=== PATIENT | female | born 1980 | race Caucasian/White ===

== ENCOUNTER 2017-03-29 08:05 | Emergency (ER) | payer OTHER ==
--- NOTE | 2017-03-29 10:34 | DIAGNOSTIC IMAGING REPORT ---
PROCEDURE: CT ABDOMEN/PELVIS W/O CONTRAST INDICATION: Bilateral flank pain. TECHNIQUE: Noncontrast axial images were obtained of the entire abdomen and pelvis with sagittal and coronal reformations. COMPARISON: None. FINDINGS: ABDOMEN: 2 cm rounded left lower lobe peripheral opacity with an inflammatory appearance suggestive of round pneumonia versus nodule. No effusion. Normal heart size. No evidence of urinary calculi. No hydronephrosis. Calcified hepatic granuloma. The gallbladder, pancreas, spleen and adrenal glands are normal. Normal abdominal aorta. Nonspecific bowel gas pattern. 1 cm fat filled umbilical hernia. PELVIS: Normal appendix. Uterus, adnexa and bladder are unremarkable. No pelvic mass, inflammatory changes or free fluid. Congenital T11 butterfly vertebrae. IMPRESSION: 1. 2 cm peripheral left lower lobe opacity, round pneumonia versus nodule 2. No evidence of urinary calculi or hydronephrosis 3. Congenital T11 butterfly vertebrae. 4. Results discussed with Dr. Heaton All CT scans at this facility use dose modulation, iterative reconstruction, and/or weight-based dosing when appropriate to reduce radiation dose to as low as reasonably achievable.
--- NOTE | 2017-03-29 10:42 | ED NURSING NOTES ---
Clinical Report - Nurses [facility] [address] [place] [address] 03/29/2017 8:10 [id number] Triage time 08:25. Acuity: LEVEL 3. Chief Complaint: BACK PAIN (left sided rib pain no trauma might have sat wrong). Alert. --08:31 Jeanna Wellington R.N. 08:25 03/29/17. BP: 137/110. HR: 114. RR: 22. O2 saturation: 98%. Temp: 98.3 F. Pain level now 06/08. --08:31 Jeanna Wellington R.N. Weight: 86.1 kg stated. Height/Length: 63 inches Per Patient. BMI: 33.6. --08:30 Jeanna Wellington R.N. Medications None. --08:29 Jeanna Wellington R.N. Allergies None. --08:29 Jeanna Wellington R.N. History Arrived by private vehicle. Historian: patient. Accompanied by family. Primary physician (none). This is a new problem and onset was abrupt. (about 2 days). ( t has had a cold and now has rib pain). 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 PAST MEDICAL HX: Immunizations: up-to-date. Last normal menstrual period- March 25. SOCIAL HX: Former smoker. No alcohol use or drug use. --08:31 Jeanna Wellington R.N. PROBLEMS: Spontaneous (Miscarriage). --08:29 Jeanna Wellington R.N. ADDITIONAL SURGERIES: Dilatation & Curettage. --08:29 Jeanna Wellington R.N. PHYSICAL ASSESSMENT Ambulatory to room. Patient gowned. GENERAL / NEURO / PSYCH: Alert. Oriented X 4. Appears anxious and in distress. --08:31 Jeanna Wellington R.N. NURSING PROGRESS NOTES Patient gowned. Call light placed in reach. Side rails up x 1. Patient ready for evaluation- ED physician notified. --08:31 Jeanna Wellington R.N. 09:13 03/29/2017 Site #1 started via IV in the left hand with an 18g angiocath, with aseptic technique and good blood return; one attempt. Blood drawn: rainbow set. Labeled in the presence of the patient and sent to the lab. --09:13 Jeanna Wellington R.N. 09:13 03/29/2017 Started bag #1 1000 mL IV Fluids IV NS (Saline); bolus of 500 mL over 30 minute(s) then at 125 mL/hr over 4 hour(s) via site #1 via IV pump. Allergies verified and confirmed 5 rights. IV patency established. IV site checked: no pain, redness, or swelling. IV flushed thoroughly pre- and post-medication administration. --09:13 Jeanna Wellington R.N. 09:23 03/29/2017 Toradol IVP 30 mg given over 2 minute(s) via site #1. Allergies verified and confirmed 5 rights. IV patency established. IV site checked: no pain, redness, or swelling. IV flushed thoroughly pre- and post-medication administration. IVP given by RN. --09:28 Jeanna Wellington R.N. 09:38 03/29/2017 Zofran (Ondansetron HCl) IVP 4 mg given over 2 minute(s) via site #1. Allergies verified and confirmed 5 rights. IV patency established. IV site checked: no pain, redness, or swelling. IV flushed thoroughly pre- and post-medication administration. IVP given by RN. --09:43 Jeanna Wellington R.N. 09:38 03/29/2017 Dilaudid (HYDROmorphone HCl PF) IVP 1 mg given over 2 minute(s) via site #1. Allergies verified, confirmed 5 rights and sedative warning given to the patient. IV patency established. IV site checked: no pain, redness, or swelling. IV flushed thoroughly pre- and post-medication administration. IVP given by RN. --09:43 Jeanna Wellington R.N. 10:39 03/29/2017 Started 2 gm of Rocephin (CefTRIAXone Sodium) IVPB in bag #1 50 mL; at 100 mL/hr over 30 minute(s) via site #1 via IV pump. Allergies verified and confirmed 5 rights. IV patency established. IV site checked: no pain, redness, or swelling. IV flushed thoroughly pre- and post-medication administration. --10:39 Jeanna Wellington R.N. 10:39 03/29/2017 Zithromax PO 500 mg given. Allergies verified and confirmed 5 rights. --10:39 Jeanna Wellington R.N. The patient is calm and resting quietly. Overall patient status is improved. RESPIRATORY: No respiratory distress. --10:40 Jeanna Wellington R.N. 10:39 03/29/17. Pain level now 01/06. --10:40 Jeanna Wellington R.N. 11:06 03/29/2017 Site #1 removed upon discharge. Bandaid applied. --11:16 Jeanna Wellington R.N. DISPOSITION / DISCHARGE Condition at departure: improved and stable. Discharge instructions provided and reviewed with the patient. Patient verbalized understanding. Written instructions provided in Yakut. The patient was discharged home and accompanied by mexican food maker hand. She left the Emergency Department ambulatory and via private vehicle. Skip [employer] driving. --11:16 Jeanna Wellington R.N. 11:15 03/29/17. BP: 117/66. HR: 67. RR: 18. O2 saturation: 97%. Pain level now 12/09. --11:16 Jeanna Wellington R.N. Departure time: 11:17. --11:17 Jeanna Wellington R.N. Locked/Released at 03/29/2017 11:21 by Jeanna Wellington R.N.
--- NOTE | 2017-03-29 10:42 | ED CLINICAL REPORT ---
Clinical Report - Physicians/Mid Levels [facility] [address] [place] [place] [address] 03/29/2017 8:10 Patient: RAYMOND GROVE Time Seen: 925. Arrived- By private vehicle. Historian- patient. HISTORY OF PRESENT ILLNESS Chief Complaint: BACK PAIN. It is described as being severe and in the area of the right flank and right side of the upper lumbar spine. The quality is noted to be "pain". No radiation. Modifying factors- worsened by sitting. Relieved by standing. (Patient states lifting her right leg makes the pain worse. The pain is on the right.). Onset- about 2 days ago and it is still present. No bladder dysfunction, bowel dysfunction, sensory loss or motor loss. Patient notes the possibility of an injury. Mechanism of injury- (patient states she had been watching a movie with her boyfriend and felt the pain after standing up from the couch. She did not feel any specific injury otherwise. No pop or snap. The patient has no history of chronic back pain. Patient does note that she had recently been ill with a flu-like illness; however the symptoms of this have resolved.). No other injury. Similar symptoms previously: None. Recent medical care: Not recently seen/assessed. REVIEW OF SYSTEMS No fever, chills, eye discomfort, headache or sore throat. No cough, difficulty breathing, skin rash, abdominal pain or nausea. No vomiting, diarrhea, black stools, difficulty with urination or urinary frequency. No hematuria or bloody stools. The patient has had chest pain (patient has pain over her left lateral rib cage). All systems otherwise negative, except as recorded above. PAST HISTORY Problems: Spontaneous (Miscarriage). Additional Surgeries: Dilatation & Curettage. Medications: None. Allergies: None. SOCIAL HISTORY Former smoker. No alcohol use or drug use. ADDITIONAL NOTES The nursing notes have been reviewed. PHYSICAL EXAM Vital Signs: 03/29/2017 08:25 BP: 137/110. HR: 114. RR: 22. O2 saturation: 98%. Temp: 98.3 F. Have been reviewed. Appearance: Alert. (Patient is tearful.). HEENT: Normal external inspection. Eyes: Pupils equal, round and reactive to light. Neck: Normal inspection. Painless ROM. CVS: Normal heart rate and rhythm. Heart sounds normal. Pulses normal. Respiratory: No respiratory distress. Breath sounds normal. (Patient has mild tenderness over her inferior left lateral rib cage.). Abdomen: Normal inspection. Soft and nontender. Back: Mild CVA tenderness on the right. Mildly limited ROM in the back- in the lumbar spine: decreased flexion, left lateral bending and rotation to the right and left. Skin: Skin warm and dry. Normal skin color. No rash. Normal skin turgor. Extremities: No lower extremity edema. Extremities nontender. No calf tenderness. Neuro: Oriented X 3. Mood/affect normal. No motor deficit. No sensory deficit. LABS, X-RAYS, AND EKG CT Abdomen - Pelvis: Normal aorta. Normal liver, spleen, pancreas, gallbladder and adrenals. Normal kidneys. Bladder normal. Appendix normal. No free fluid. No bony lesion. No diverticulitis. Left lower lobe pneumonia. Study type: renal stone evaluation; upper abdomen; lower abdomen; pelvis. Abdomen - pelvic CT performed without contrast. The study was independently viewed by me, interpreted by the radiologist and contemporaneously by me and discussed with the radiologist. Prior studies were not available for comparison. Laboratory Tests: UA-Culture if indicated: (MARTHA: 03/29/2017 08:55) ( MsgRcvd 03/29/2017 09:46) Final results Test Result Flag Units (Reference) URINE COLOR YELLOW URINE APPEARANCE SL CLOUDY URINE GLUCOSE NEGATIVE (NEGATIVE) URINE BILIRUBIN ICTOTEST NEGATIVE (NEGATIVE) URINE KETONE 3+ (NEGATIVE) URINE SPECIFIC GRAVITY 1.015 (1.010-1.030) URINE PH 6.0 (5.0-8.0) URINE PROTEIN 1+ (NEGATIVE) URINE UROBILINOGEN 1.0 EU/dL (0.2-1.0) URINE NITRITE NEGATIVE (NEGATIVE) URINE BLOOD 3+ (NEGATIVE) URINE LEUK ESTERASE NEGATIVE (NEGATIVE) URINE RBC 3-5 rbc/hpf (0-1) URINE WBC 3-5 wbc/hpf (0-1) URINE EPITHELIAL CELLS 5-10 EPI/hpf (0-5) URINE BACTERIA MODERATE (2+ TO 3+) (NONE SEEN) URINE COMMENT CULTURE INDICATED URINE CULTURES ARE SET-UP BASED ON THE FOLLOWING CRITERIA:POSITIVE NITRITEPOSITIVE LEUKOCYTE ESTERASEGREATER THAN 10 WHITE BLOOD CELLSMODERATE (2+) OR GREATER BACTERIA Urine: (MARTHA: 03/29/2017 08:55) ( [facility] [place] 03/29/2017 09:24) Final results Test Result Flag Units (Reference) URINE NEGATIVE CBC w Diff: (MARTHA: 03/29/2017 09:05) ( [facility] [place] 03/29/2017 09:24) Final results Test Result Flag Units (Reference) WHITE BLOOD COUNT 8.8 K/uL (4.5-11.5) RED BLOOD COUNT 4.68 M/uL (4.00-5.20) HEMOGLOBIN 14.2 gm/dL (12.0-16.0) HEMATOCRIT 41.8 % (36.0-46.0) MEAN CELL VOLUME 89 fL (80-100) MEAN CORPUSCULAR HGB 30 pg (26-34) MEAN CORPUSCULAR HGB CONC 34 g/dL (31-37) RED CELL DISTRIBUTION WIDTH 12.9 % (11.6-14.8) PLATELET COUNT 254 K/uL (150-400) NEUTROPHIL % 77.5 H % (50-75) LYMPH % 12.3 L % (25-40) MONO % 9.6 % (3-14) EOSINOPHIL % 0.6 % (0-4) BASOPHIL % 0 % (0-2) CMP: (MARTHA: 03/29/2017 09:05) ( [facility] [place] 03/29/2017 09:44) Final results Test Result Flag Units (Reference) GLUCOSE 120 H mg/dL (70-110) BUN 6 L mg/dL (7-18) CREATININE 0.8 mg/dL (0.6-1.3) Estimated GFR >60 mL/min Estimated GFR- >60 mL/min Note: Persistent reduction over 3 months in eGFR<60 mL/min/1.73 m2 defines CKD. Patients with eGFR values>=60 mL/min/1.73 m2 may also have CKD if evidence ofpersistent proteinuria. Additional information may be foundat www.[email or web address].org. SODIUM 139 mmol/L (136-145) POTASSIUM 4.1 mmol/L (3.5-5.1) CHLORIDE 102 mmol/L (98-107) CARBON DIOXIDE 20 L mmol/L (21-32) CALCIUM 9.0 mg/dL (8.5-10.1) TOTAL PROTEIN 8.1 g/dL (6.4-8.2) ALBUMIN 3.8 g/dL (3.3-5.0) BILIRUBIN, TOTAL 0.6 mg/dL (0.0-1.0) ALKALINE PHOSPHATASE 123 H U/L (46-116) AST (SGOT) 83 H U/L (15-37) ALT (SGPT) 269 H U/L (12-78) LIPASE 94 U/L (73-393) AMYLASE 40 U/L (25-115) . Pulse Oximetry: 03/29/2017 08:25 O2 saturation: 98%. (FIO2 - room air). Interpretation: normal. PROGRESS AND PROCEDURES Course of Care: Patient was given IV fluids Toradol, Dilaudid and Zofran for symptomatic relief. Patient's pain did sound likely to be muscular; however given the degree of pain and the location, I did feel that the patient should be worked up for a kidney stone as well. CT scan did show a left lower lobe pneumonia, but otherwise no pathology. Patient was treated with antibiotics for this. No emergent condition was identified. Patient counseled in person regarding the patient's stable condition, test results, diagnosis and need for follow-up. Concerns were addressed. Old medical records reviewed. Disposition: Discharged. Condition: stable and improved. CLINICAL IMPRESSION Bacterial pneumonia. Vital signs recorded and reviewed; empiric antibiotics given in the ED. No hypoxemia, respiratory failure or sepsis. Muscle strain of the low back. INSTRUCTIONS (Your CT scan showed a small area of pneumonia in the left lower lung. You should have a chest x-ray in 2 weeks to make sure this has resolved with antibiotics, and that there is not an underlying tumor there. No abnormalities were found on the right side. You do not have a kidney stone or any other organ problems.). Warnings: SEDATIVE MEDICATION: You were given sedative medication during your visit. Do not drive or operate dangerous machinery for 6 hours. GENERAL WARNINGS: Return or contact your physician immediately if your condition worsens or changes unexpectedly, if not improving as expected, or if other problems arise. Prescription Medications: Hydrocodone/APAP 5mg / 325mg: take 1-2 orally every 6 hours as needed for pain. Dispense fifteen (15). No refill. Zofran (orally disintegrating tablets) 4 mg: take 1-2 orally every 6 hours as needed for nausea. Dispense fifteen (15). No refill. Substitution is permissible. Zithromax Z-John: Take according to package instructions 2 orally today, followed by 1 orally every day for the next 4 days. Total course 5 days. No refills. Substitution is permissible. Follow-up: Follow up with your doctor in five days if not better. Understanding of the discharge instructions verbalized by patient. (Electronically signed by Maria Del Rosario Heaton MD 04/06/2017 4:12)
--- NOTE | 2017-03-29 10:42 | ED ORDER SUMMARY ---
..... Patient: RAYMOND GROVE OrderSheet [facility] VisitID: [id number] [place], [place] [id number] 37y, F Registration Date/Time: 03/29/2017 ORDER SHEET Weight: 86.1 kg (stated) Allergies: None GENERAL ORDERS: CBC w Diff Urgent (09:00 03/29/2017 Axel ENCARNACION) (Ack 9:03 LNations ER Tech1) (9:12 DMaziarka R.N.) CMP Urgent (09:00 03/29/2017 Axel ENCARNACION) (Ack 9:03 LNations ER Tech1) (9:12 DMaziarka R.N.) UA-Culture if indicated Urgent (09:00 03/29/2017 Axel ENCARNACION) (Ack 9:03 LNations ER Tech1) (9:12 DMaziarka R.N.) Amylase Urgent (09:00 03/29/2017 Axel ENCARNACION) (Ack 9:03 LNations ER Tech1) (9:12 DMaziarka R.N.) Lipase Urgent (09:00 03/29/2017 Axel ENCARNACION) (Ack 9:03 LNations ER Tech1) (9:12 DMaziarka R.N.) Urine Urgent (09:00 03/29/2017 Axel ENCARNACION) (Ack 9:03 LNations ER Tech1) (9:12 DMaziarka R.N.) CT Abd/Pel wo Cont Urgent (09:39 03/29/2017 Brett ENCARNACION) (Ack 9:40 LNations ER Tech1) (10:07 LNations ER Tech1) MEDICATION ORDERS: Zithromax PO 500 mg (NOW) (10:28 03/29/2017 Brett ENCARNACION) (10:39 DMaziarka R.N.) IV FLUIDS: IV NS : initial bolus 500 mL (1000 mL/hr), then 125 mL/hr for 4h (NOW); Urgent (08:59 03/29/2017 Axel ENCARNACION) (9:13 DMaziarka R.N.) Toradol IV 30 mg (NOW) (09:21 03/29/2017 Néstorziarka R.N. verbal order read back to Brett ENCARNACION) (9:28 Heidy Church.N.) Zofran IV 4 mg (NOW) (09:38 03/29/2017 Brett ENCARNACION) (9:43 Heidy R.N.) Dilaudid IV 1 mg (HIGH ALERT MEDICATION, NOW) (09:38 03/29/2017 Brett ENCARNACION) (9:43 Heidy R.N.) Rocephin IV 2 gm/50mL (NOW) (10:28 03/29/2017 Brett ENCARNACION) (10:39 Heidy R.N.) ORDER SHEET NOTES: [Electronically signed by Jaenna Wellington R.N. (11:03/29/2017)] [Electronically signed by Maria Del Rosario Heaton MD (04:12 04/06/2017)] [Electronically locked/signed by Jeanna Wellington R.N. (11:21 03/29/2017)]
--- NOTE | 2017-03-29 10:42 | ED NURSING NOTES ---
Clinical Report - Nurses [facility] [address] [place] [address] 03/29/2017 8:10 [id number] Triage time 08:25. Acuity: LEVEL 3. Chief Complaint: BACK PAIN (left sided rib pain no trauma might have sat wrong). Alert. --08:31 Jeanna Wellington R.N. 08:25 03/29/17. BP: 137/110. HR: 114. RR: 22. O2 saturation: 98%. Temp: 98.3 F. Pain level now 06/08. --08:31 Jeanna Wellington R.N. Weight: 86.1 kg stated. Height/Length: 63 inches Per Patient. BMI: 33.6. --08:30 Jeanna Wellington R.N. Medications None. --08:29 Jeanna Wellington R.N. Allergies None. --08:29 Jeanna Wellington R.N. History Arrived by private vehicle. Historian: patient. Accompanied by family. Primary physician (none). This is a new problem and onset was abrupt. (about 2 days). ( t has had a cold and now has rib pain). 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 PAST MEDICAL HX: Immunizations: up-to-date. Last normal menstrual period- March 25. SOCIAL HX: Former smoker. No alcohol use or drug use. --08:31 Jeanna Wellington R.N. PROBLEMS: Spontaneous (Miscarriage). --08:29 Jeanna Wellington R.N. ADDITIONAL SURGERIES: Dilatation & Curettage. --08:29 Jeanna Wellington R.N. PHYSICAL ASSESSMENT Ambulatory to room. Patient gowned. GENERAL / NEURO / PSYCH: Alert. Oriented X 4. Appears anxious and in distress. --08:31 Jeanna Wellington R.N. NURSING PROGRESS NOTES Patient gowned. Call light placed in reach. Side rails up x 1. Patient ready for evaluation- ED physician notified. --08:31 Jeanna Wellington R.N. 09:13 03/29/2017 Site #1 started via IV in the left hand with an 18g angiocath, with aseptic technique and good blood return; one attempt. Blood drawn: rainbow set. Labeled in the presence of the patient and sent to the lab. --09:13 Jeanna Wellington R.N. 09:13 03/29/2017 Started bag #1 1000 mL IV Fluids IV NS (Saline); bolus of 500 mL over 30 minute(s) then at 125 mL/hr over 4 hour(s) via site #1 via IV pump. Allergies verified and confirmed 5 rights. IV patency established. IV site checked: no pain, redness, or swelling. IV flushed thoroughly pre- and post-medication administration. --09:13 Jeanna Wellington R.N. 09:23 03/29/2017 Toradol IVP 30 mg given over 2 minute(s) via site #1. Allergies verified and confirmed 5 rights. IV patency established. IV site checked: no pain, redness, or swelling. IV flushed thoroughly pre- and post-medication administration. IVP given by RN. --09:28 Jeanna Wellington R.N. 09:38 03/29/2017 Zofran (Ondansetron HCl) IVP 4 mg given over 2 minute(s) via site #1. Allergies verified and confirmed 5 rights. IV patency established. IV site checked: no pain, redness, or swelling. IV flushed thoroughly pre- and post-medication administration. IVP given by RN. --09:43 Jeanna Wellington R.N. 09:38 03/29/2017 Dilaudid (HYDROmorphone HCl PF) IVP 1 mg given over 2 minute(s) via site #1. Allergies verified, confirmed 5 rights and sedative warning given to the patient. IV patency established. IV site checked: no pain, redness, or swelling. IV flushed thoroughly pre- and post-medication administration. IVP given by RN. --09:43 Jeanna Wellington R.N. 10:39 03/29/2017 Started 2 gm of Rocephin (CefTRIAXone Sodium) IVPB in bag #1 50 mL; at 100 mL/hr over 30 minute(s) via site #1 via IV pump. Allergies verified and confirmed 5 rights. IV patency established. IV site checked: no pain, redness, or swelling. IV flushed thoroughly pre- and post-medication administration. --10:39 Jeanna Wellington R.N. 10:39 03/29/2017 Zithromax PO 500 mg given. Allergies verified and confirmed 5 rights. --10:39 Jeanna Wellington R.N. The patient is calm and resting quietly. Overall patient status is improved. RESPIRATORY: No respiratory distress. --10:40 Jeanna Wellington R.N. 10:39 03/29/17. Pain level now 01/06. --10:40 Jeanna Wellington R.N. 11:06 03/29/2017 Site #1 removed upon discharge. Bandaid applied. --11:16 Jeanna Wellington R.N. DISPOSITION / DISCHARGE Condition at departure: improved and stable. Discharge instructions provided and reviewed with the patient. Patient verbalized understanding. Written instructions provided in Bulgarian. The patient was discharged home and accompanied by medical equipment repairer. She left the Emergency Department ambulatory and via private vehicle. Cytology Laboratory Manager driving. --11:16 Jeanna Wellington R.N. 11:15 03/29/17. BP: 117/66. HR: 67. RR: 18. O2 saturation: 97%. Pain level now 12/09. --11:16 Jeanna Wellington R.N. Departure time: 11:17. --11:17 Jeanna Wellington R.N. Locked/Released at 03/29/2017 11:21 by Jeanna Wellington R.N.
--- NOTE | 2017-03-29 10:42 | ED ORDER SUMMARY ---
..... Patient: RAYMOND GROVE OrderSheet [facility] VisitID: [id number] [place]al [place], [place] [id number] 37y, F Registration Date/Time: 03/29/2017 ORDER SHEET Weight: 86.1 kg (stated) Allergies: None GENERAL ORDERS: CBC w Diff Urgent (09:00 03/29/2017 Axel ENCARNACION) (Ack 9:03 LNations ER Tech1) (9:12 DMaziarka R.N.) CMP Urgent (09:00 03/29/2017 Axel ENCARNACION) (Ack 9:03 LNations ER Tech1) (9:12 DMaziarka R.N.) UA-Culture if indicated Urgent (09:00 03/29/2017 Axel ENCARNACION) (Ack 9:03 LNations ER Tech1) (9:12 DMaziarka R.N.) Amylase Urgent (09:00 03/29/2017 Axel ENCARNACION) (Ack 9:03 LNations ER Tech1) (9:12 DMaziarka R.N.) Lipase Urgent (09:00 03/29/2017 Axel ENCARNACION) (Ack 9:03 LNations ER Tech1) (9:12 DMaziarka R.N.) Urine Urgent (09:00 03/29/2017 Axel ENCARNACION) (Ack 9:03 LNations ER Tech1) (9:12 DMaziarka R.N.) CT Abd/Pel wo Cont Urgent (09:39 03/29/2017 Brett ENCARNACION) (Ack 9:40 LNations ER Tech1) (10:07 LNations ER Tech1) MEDICATION ORDERS: Zithromax PO 500 mg (NOW) (10:28 03/29/2017 Brett ENCARNACION) (10:39 DMaziarka R.N.) IV FLUIDS: IV NS : initial bolus 500 mL (1000 mL/hr), then 125 mL/hr for 4h (NOW); Urgent (08:59 03/29/2017 Axel ENCARNACION) (9:13 DMaziarka R.N.) Toradol IV 30 mg (NOW) (09:21 03/29/2017 Néstorziarka R.N. verbal order read back to Brett ENCARNACION) (9:28 Heidy Church.N.) Zofran IV 4 mg (NOW) (09:38 03/29/2017 Brett ENCARNACION) (9:43 Heidy R.N.) Dilaudid IV 1 mg (HIGH ALERT MEDICATION, NOW) (09:38 03/29/2017 Brett ENCARNACION) (9:43 Heidy R.N.) Rocephin IV 2 gm/50mL (NOW) (10:28 03/29/2017 Brett ENCARNACION) (10:39 Heidy R.N.) ORDER SHEET NOTES: [Electronically signed by Jeanna Wellington R.N. (11:03/29/2017)] [Electronically signed by Maria Del Rosario Heaton MD (04:12 04/06/2017)] [Electronically locked/signed by Jeanna Wellington R.N. (11:21 03/29/2017)]
--- NOTE | 2017-04-06 04:12 | ED MED RECONCILIATION SUMMARY ---
Patient: RAYMOND GROVE Medication Reconciliation Report [facility] VisitID: [id number] [address] [place] [address] 37y, F Registration Date/Time: 03/29/2017 Weight: 86.1 kg Height/Length: 63 in. BMI: 33.6 ALLERGIES: None The patient's Home Medications are listed below: NONE. The source(s) of the original Home Medication information: Not obtained. The following Medications were given to the patient in the Emergency Department: IV NS IV Fluids bolus 500 mL over 30 minute(s), then 125 mL/hr, administered: 03/29/2017 9:13:00 AM Toradol [IVP] IVP 30 mg, administered: 03/29/2017 9:23:00 AM Zofran [IVP] IVP 4 mg, administered: 03/29/2017 9:38:00 AM Dilaudid [IVP] IVP 1 mg, administered: 03/29/2017 9:38:00 AM Rocephin [IVPB] IVPB bolus 0, then 2 gm 100 mL/hr, administered: 03/29/2017 10:39:00 AM Zithromax [PO] PO 500 mg, administered: 03/29/2017 10:39:00 AM The following Medications were prescribed to the patient: Hydrocodone/APAP 5mg / 325mg: take 1-2 orally every 6 hours as needed for pain. Dispense fifteen (15). No refill. -- Maria Del Rosario Heaton MD Zofran (orally disintegrating tablets) 4 mg: take 1-2 orally every 6 hours as needed for nausea. Dispense fifteen (15). No refill. Substitution is permissible. -- Maria Del Rosario Heaton MD Zithromax Z-John: Take according to package instructions 2 orally today, followed by 1 orally every day for the next 4 days. Total course 5 days. No refills. Substitution is permissible. -- Maria Del Rosario Heaton MD
--- NOTE | 2017-04-06 04:12 | ED MED RECONCILIATION SUMMARY ---
Patient: RAYMOND GROVE Medication Reconciliation Report [facility] VisitID: [id number] [address] [place] [address] 37y, F Registration Date/Time: 03/29/2017 Weight: 86.1 kg Height/Length: 63 in. BMI: 33.6 ALLERGIES: None The patient's Home Medications are listed below: NONE. The source(s) of the original Home Medication information: Not obtained. The following Medications were given to the patient in the Emergency Department: IV NS IV Fluids bolus 500 mL over 30 minute(s), then 125 mL/hr, administered: 03/29/2017 9:13:00 AM Toradol [IVP] IVP 30 mg, administered: 03/29/2017 9:23:00 AM Zofran [IVP] IVP 4 mg, administered: 03/29/2017 9:38:00 AM Dilaudid [IVP] IVP 1 mg, administered: 03/29/2017 9:38:00 AM Rocephin [IVPB] IVPB bolus 0, then 2 gm 100 mL/hr, administered: 03/29/2017 10:39:00 AM Zithromax [PO] PO 500 mg, administered: 03/29/2017 10:39:00 AM The following Medications were prescribed to the patient: Hydrocodone/APAP 5mg / 325mg: take 1-2 orally every 6 hours as needed for pain. Dispense fifteen (15). No refill. -- Maria Del Rosario Heaton MD Zofran (orally disintegrating tablets) 4 mg: take 1-2 orally every 6 hours as needed for nausea. Dispense fifteen (15). No refill. Substitution is permissible. -- Maria Del Rosario Heaton MD Zithromax Z-John: Take according to package instructions 2 orally today, followed by 1 orally every day for the next 4 days. Total course 5 days. No refills. Substitution is permissible. -- Maria Del Rosario Heaton MD
--- NOTE | 2017-04-06 04:12 | ED MAR SUMMARY ---
..... Medication Administration Record [facility] [address] [place] [address] Patient: RAYMOND GROVE Visit ID: [id number] 37y, F Weight: 86.1 kg Height/Length: 63 in BMI: 33.6 ALLERGIES: None Start 09:13 03/29/2017 Jeanna Wellington R.N. Medication Administered: IV NS (SALINE), Dose: IV Fluids over 4 hour(s), Rate: 125 mL/hr, Bolus: 500 mL over 30 minute(s), Dispensed: 1000 mL bag, Site: #1 left hand. Medication Ordered: IV NS : initial bolus 500 mL (1000 mL/hr), then 125 mL/hr for 4h (NOW); Urgent. Given 09:23 03/29/2017 Jeanna Wellington R.N. Medication Administered: TORADOL [IVP], Dose: 30 mg IVP over 2 minute(s), Site: #1 left hand. Medication Ordered: Toradol IV 30 mg (NOW). Given 09:03/29/2017 Jeanna Wellington R.N. Medication Administered: ZOFRAN [IVP] (ONDANSETRON HCL), Dose: 4 mg IVP over 2 minute(s), Site: #1 left hand. Medication Ordered: Zofran IV 4 mg (NOW). Given 09:03/29/2017 Jeanna Wellington R.N. Medication Administered: DILAUDID [IVP] (HYDROMORPHONE HCL PF), Dose: 1 mg IVP over 2 minute(s), Site: #1 left hand. Medication Ordered: Dilaudid IV 1 mg (HIGH ALERT MEDICATION, NOW). Start 10:39 03/29/2017 Jeanna Wellington R.N. Medication Administered: ROCEPHIN [IVPB] (CEFTRIAXONE SODIUM), Dose: 2 gm IVPB over 30 minute(s), Rate: 100 mL/hr, Dispensed: 50 mL bag, Site: #1 left hand. Medication Ordered: Rocephin IV 2 gm/50mL (NOW). Given 10:39 03/29/2017 Jeanna Wellington R.N. Medication Administered: ZITHROMAX [PO], Dose: 500 mg PO. Medication Ordered: Zithromax PO 500 mg (NOW).
--- NOTE | 2017-04-06 04:12 | ED DISCHARGE INSTRUCTIONS ---
Patient: RAYMOND GROVE General Instructions [facility] VisitID: [id number] [place] [address] 37y, F Registration Date/Time: 03/29/2017 Bacterial pneumonia. Vital signs recorded and reviewed; empiric antibiotics given in the ED. No hypoxemia, respiratory failure or sepsis. Muscle strain of the low back. INSTRUCTIONS (Your CT scan showed a small area of pneumonia in the left lower lung. You should have a chest x-ray in 2 weeks to make sure this has resolved with antibiotics, and that there is not an underlying tumor there. No abnormalities were found on the right side. You do not have a kidney stone or any other organ problems.). Warnings: SEDATIVE MEDICATION: You were given sedative medication during your visit. Do not drive or operate dangerous machinery for 6 hours. GENERAL WARNINGS: Return or contact your physician immediately if your condition worsens or changes unexpectedly, if not improving as expected, or if other problems arise. Prescription Medications: Hydrocodone/APAP 5mg / 325mg: take 1-2 orally every 6 hours as needed for pain. Dispense fifteen (15). No refill. Zofran (orally disintegrating tablets) 4 mg: take 1-2 orally every 6 hours as needed for nausea. Dispense fifteen (15). No refill. Substitution is permissible. Zithromax Z-John: Take according to package instructions 2 orally today, followed by 1 orally every day for the next 4 days. Total course 5 days. No refills. Substitution is permissible. Follow-up: Follow up with your doctor in five days if not better. Understanding of the discharge instructions verbalized by patient. ADDITIONAL INFORMATION Back Pain [Acute Or Chronic] Back pain is usually caused by an injury to the muscles or ligaments of the spine. Sometimes the disks that separate each bone in the spine may bulge and cause pain by pressing on a nearby nerve. Back pain may also appear after a sudden twisting/bending force (such as in a car accident), after a simple awkward movement, or lifting something heavy with poor body positioning. In either case, muscle spasm is often present and adds to the pain. Acute back pain usually gets better in one to two weeks. Back pain related to disk disease, arthritis in the spinal joints or spinal stenosis (narrowing of the spinal canal) can become chronic and last for months or years. Unless you had a physical injury (for example, a car accident or fall) X-rays are usually not ordered for the initial evaluation of back pain. If pain continues and does not respond to medical treatment, x-rays and other tests may be performed at a later time. Home Care: You may need to stay in bed the first few days. But, as soon as possible, begin sitting or walking to avoid problems with prolonged bed rest (muscle weakness, worsening back stiffness and pain, blood clots in the legs). When in bed, try to find a position of comfort. A firm mattress is best. Try lying flat on your back with pillows under your knees. You can also try lying on your side with your knees bent up towards your chest and a pillow between your knees. Avoid prolonged sitting. This puts more stress on the lower back than standing or walking. During the first two days after injury, apply an ICE PACK to the painful area for 20 minutes every 2-4 hours. This will reduce swelling and pain. HEAT (hot shower, hot bath or heating pad) works well for muscle spasm. You can start with ice, then switch to heat after two days. Some patients feel best alternating ice and heat treatments. Use the one method that feels the best to you. You may use acetaminophen (Tylenol) or ibuprofen (Motrin, Advil) to control pain, unless another pain medicine was prescribed. [NOTE: If you have chronic liver or kidney disease or ever had a stomach ulcer or GI bleeding, talk with your doctor before using these medicines.] Be aware of safe lifting methods and do not lift anything over 15 pounds until all the pain is gone. Follow Up with your doctor or this facility if your symptoms do not start to improve after one week. Physical therapy may be needed. [NOTE: If X-rays were taken, they will be reviewed by a radiologist. You will be notified of any new findings that may affect your care.] Get Prompt Medical Attention if any of the following occur: Pain becomes worse or spreads to your legs Weakness or numbness in one or both legs Loss of bowel or bladder control Numbness in the groin or genital area Pneumonia (Adult) Pneumonia is an infection deep within the lung, in the small air sacs (alveoli). It may be due to a virus or bacteria and is usually treated with an antibiotic. Severe cases require treatment in the hospital. Milder cases can be treated at home. Symptoms usually start to improve during the first2 days of treatment. Home Care: Rest at home for the first 23 days or until you feel stronger. When resuming activity, dont let yourself become overly tired. Avoid exposure to cigarette smoke (yours or others). You may use acetaminophen (Tylenol) or ibuprofen (Motrin, Advil) to control fever or pain, unless another medicine was prescribed. [NOTE: If you have chronic liver or kidney disease or ever had a stomach ulcer or GI bleeding, talk with your doctor before using these medicines.] (Aspirin should never be used in anyone under 18 years of age who is ill with a fever. It may cause severe liver damage.) Your appetite may be poor so a light diet is fine. Keep well hydrated by drinking 68 glasses of fluids per day (water, sport drinks such as Gatorade, sodas without caffeine, juices, tea, soup, etc.). This will help loosen secretions in the lung, making it easier for you to cough up the phlegm (sputum). If you also have heart or kidney disease, check with your doctor before you drink extra amounts of fluids. Finish all antibiotic medicine prescribed, even if you are feeling better after a few days. Follow Up with your doctor in the next 23 days (or as advised) to be sure you are responding properly to the medicine. [NOTE: If you are age 65 or older, or if you have chronic lung disease (asthma, emphysema or COPD), we recommendthe pneumococcal vaccination and a yearlyinfluenzavaccination(flu-shot) every . Ask your doctor about this.] Get Prompt Medical Attention if any of the following occur: Not getting better within the first 48 hours of treatment Increasing shortness of breath or rapid breathing (over 25 breaths/minute) Coughing up blood or increasing chest pain with breathing Fever of 100.4F (38C) oral or higher, not better with fever medication Increasing weakness, dizziness or fainting Increasing thirst or dry mouth Sinus pain, headache or a stiff neck Chest pain not caused by coughing You have been given the following additional information: Back Pain (Acute Or Chronic) Pneumonia (Adult) (Electronically signed by Maria Del Rosario Heaton MD 04/06/2017 4:12)
--- NOTE | 2017-04-06 04:12 | ED MAR SUMMARY ---
..... Medication Administration Record [facility] [address] [place] [address] Patient: RAYMOND GROVE Visit ID: [id number] 37y, F Weight: 86.1 kg Height/Length: 63 in BMI: 33.6 ALLERGIES: None Start 09:13 03/29/2017 Jeanna Wellington R.N. Medication Administered: IV NS (SALINE), Dose: IV Fluids over 4 hour(s), Rate: 125 mL/hr, Bolus: 500 mL over 30 minute(s), Dispensed: 1000 mL bag, Site: #1 left hand. Medication Ordered: IV NS : initial bolus 500 mL (1000 mL/hr), then 125 mL/hr for 4h (NOW); Urgent. Given 09:23 03/29/2017 Jeanna Wellington R.N. Medication Administered: TORADOL [IVP], Dose: 30 mg IVP over 2 minute(s), Site: #1 left hand. Medication Ordered: Toradol IV 30 mg (NOW). Given 09:03/29/2017 Jeanna Wellington R.N. Medication Administered: ZOFRAN [IVP] (ONDANSETRON HCL), Dose: 4 mg IVP over 2 minute(s), Site: #1 left hand. Medication Ordered: Zofran IV 4 mg (NOW). Given 09:03/29/2017 Jeanna Wellington R.N. Medication Administered: DILAUDID [IVP] (HYDROMORPHONE HCL PF), Dose: 1 mg IVP over 2 minute(s), Site: #1 left hand. Medication Ordered: Dilaudid IV 1 mg (HIGH ALERT MEDICATION, NOW). Start 10:39 03/29/2017 Jeanna Wellington R.N. Medication Administered: ROCEPHIN [IVPB] (CEFTRIAXONE SODIUM), Dose: 2 gm IVPB over 30 minute(s), Rate: 100 mL/hr, Dispensed: 50 mL bag, Site: #1 left hand. Medication Ordered: Rocephin IV 2 gm/50mL (NOW). Given 10:39 03/29/2017 Jeanna Wellington R.N. Medication Administered: ZITHROMAX [PO], Dose: 500 mg PO. Medication Ordered: Zithromax PO 500 mg (NOW).
== END 2017-03-29 11:11 | disposition home or self-care (01) ==
LOC: ED SRH 08:05 → EDBD 08:10 → ED SRH 11:11
DX: S39.012A Strain of muscle, fascia and tendon of lower back, initial encounter (principal); J15.9 Unspecified bacterial pneumonia; X50.1XXA Overexertion from prolonged static or awkward postures, initial encounter; Y93.89 Activity, other specified; Y99.9 Unspecified external cause status; Y92.9 Unspecified place or not applicable
CPT/HCPCS: 90004; 90100; 90469; 92235; 92530; 93070; 95059